=== PATIENT | female | born 1955 | race Caucasian/White ===

== ENCOUNTER 2021-06-11 05:16 | Day surgery (SDC) | payer OTHER, BC ==
[2021-06-09 14:40] VITALS: BMI 43.2
[2021-06-11 14:37] VITALS: BP 113/53; PULSE 74; TEMP 98.6
== END 2021-06-11 14:45 | disposition home or self-care (01) ==
LOC: JASU-ENDO 05:16
PROVIDERS: ATTEND Internal Medicine Gastroenterology
PROC: 0DJD8ZZ Inspection of Lower Intestinal Tract, Via Natural or Artificial Opening Endoscopic (ICD-10-PCS; principal; 2021-06-11 12:15)
DX: Z12.11 Encounter for screening for malignant neoplasm of colon (principal); K57.30 Diverticulosis of large intestine without perforation or abscess without bleeding